=== PATIENT | female | born 1980 | race Caucasian/White ===

== ENCOUNTER 2019-11-09 11:39 | Emergency (ER) | payer OTHER ==
[~2019-11-09] VITALS: Ht 162 cm; Wt 83.2 kg
[2019-11-09 12:01] LABS: CLARITY,URINE CLEAR; COLOR,URINE YELLOW; GLUCOSE, URINE (UA) NEGATIVE (NEGATIVE); PH,URINE 6.5 (5-9); PROTEIN,URINE NEGATIVE (NEGATIVE)
[2019-11-09 12:02] LABS: BACTERIA,URINE FEW /HPF; BILIRUBIN,URINE NEGATIVE (NEGATIVE); KETONES,URINE NEGATIVE (NEGATIVE); LEUKOCYTE ESTERASE ,URINE TRACE (NEGATIVE); NITRITE,URINE NEGATIVE (NEGATIVE); RBC,URINE 0-2 /HPF; WBC,URINE 0-2 /HPF
--- NOTE | 2019-11-09 12:06 | ED General ---
General Stated Complaint: ABD/BACK PAIN Source of Information: Patient Exam Limitations: No Limitations History of Present Illness Date Seen by Provider: Nov 09, 2019 Time Seen by Provider: 11:55 Initial Comments Patient presents with onset of low back pain on both sides and radiating to her right lower abdomen and mid lower abdomen since last night. Pain is worse with movement, hard to find a comfortable position, feels better if leaning forward. Denies any pain with urination, any blood in her urine. Denies any fever or chills. Denies nausea vomiting, constipation or diarrhea. Appetite has been normal. Denies any recent back injury or history of back problems. 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 Allergies and Home Medications Allergies Coded Allergies: Penicillins (Verified Allergy, Unknown, 11/09/19) Home Medications Cyclobenzaprine HCl 10 Mg Tablet, 10 MG PO HS Prescribed by: TESHA SHETH on 11/09/19 1218 Hydrocodone/Acetaminophen 1 Each Tablet, 1-2 TAB PO Q6H Prescribed by: TESHA SHETH on 11/09/19 1218 Ibuprofen 800 Mg Tablet, 800 MG PO Q8H PRN for PAIN-MILD Prescribed by: TESHA SHETH on 11/09/19 1218 Patient Home Medication List Home Medication List Reviewed: Yes Review of Systems Review of Systems Constitutional: see HPI Respiratory: No cough, No dyspnea on exertion, No short of breath Cardiovascular: No chest pain, No palpitations, No syncope Gastrointestinal: abdominal pain; No constipation, No diarrhea, No dysphagia, No heartburn, No loss of appetite, No nausea, No vomiting Genitourinary: see HPI; No dysuria, No frequency, No hematuria Musculoskeletal: back pain; No joint pain; muscle pain Skin: see HPI; No change in color, No lesions, No rash Psychiatric/Neurological: Denies Paresthesia, Denies Weakness Past Jueamht-Nfyaik-Bancoj Hx Past Med/Social Hx: Reviewed Nursing Past Med/Soc Hx Patient Social History Recent Foreign Travel: No Physical Exam Vital Signs Vital Signs - First Documented 11/09/19 11:45 Temp 36.7 Pulse 101 Resp 16 B/P (MAP) 137/96 (110) Pulse Ox 98 Capillary Refill : Height, Weight, BMI Height: '" Weight: lbs. oz. kg; BMI Method: General Appearance: No Apparent Distress, WD/WN Respiratory: Chest Non Tender, Lungs Clear, Normal Breath Sounds Cardiovascular: Regular Rate, Rhythm, No Edema, No JVD, Normal Peripheral Pulses Gastrointestinal: Normal Bowel Sounds, Soft; No Distended, No Guarding; Tenderness (minimal suprapubic) Back: No Vertebral Tenderness, CVA Tenderness (L), CVA Tenderness (R), Decreased Range of Motion, Muscle Spasm, Other (moderate tenderness paraspinal ms lower thoracic and lumbar) Neurologic/Psychiatric: Alert, Oriented x3, No Motor/Sensory Deficits, Normal Mood/Affect Progress/Results/Core Measures Suspected Sepsis SIRS Temperature: Pulse: Respiratory Rate: Blood Pressure / Mean: Results/Orders Lab Results Laboratory Tests Test 11/09/19 11:35 Range/Units Urine Color YELLOW Urine Clarity CLEAR Urine pH 6.5 5-9 Urine Specific [place] 1.025 H 1.016-1.022 Urine Protein NEGATIVE NEGATIVE Urine Glucose (UA) NEGATIVE NEGATIVE Urine Ketones NEGATIVE NEGATIVE Urine Nitrite NEGATIVE NEGATIVE Urine Bilirubin NEGATIVE NEGATIVE Urine Urobilinogen 0.2 < = 1.0 MG/DL Urine Leukocyte Esterase TRACE NEGATIVE Urine RBC (Auto) TRACE H NEGATIVE Urine RBC 0-2 /HPF Urine WBC 0-2 /HPF Urine Squamous Epithelial Cells 10-25 H /HPF Urine Crystals NONE /LPF Urine Bacteria FEW H /HPF Urine Casts NONE /LPF Urine Mucus TRACE /LPF Urine Culture Indicated NO My Orders Orders - TESHA SHETH DO Urinalysis (11/09/19 11:49) Ketorolac Injection (Toradol Injection) (11/09/19 12:30) Vital Signs/I&O 11/09/19 11:45 Temp 36.7 Pulse 101 Resp 16 B/P (MAP) 137/96 (110) Pulse Ox 98 Capillary Refill : Departure Impression Primary Impression: Acute lumbar myofascial strain Qualified Codes: S39.012A - Strain of muscle, fascia and tendon of lower back, initial encounter Disposition: 01 HOME, SELF-CARE Condition: Stable Departure-Patient Inst. Referrals: [facility] (PCP) Primary Care Physician KERRY ROBLES (Family) Primary Care Physician Patient Instructions: Back Exercises Scripts Ibuprofen (Ibuprofen) 800 Mg Tablet 800 MG PO Q8H PRN for PAIN-MILD, #30 TAB Prov: TESHA SHETH DO 11/09/19 Hydrocodone/Acetaminophen (Hydrocodone-Acetamin 5-325 mg) 1 Each Tablet 1-2 TAB PO Q6H for PAIN-MODERATE, #12 TAB Prov: TESHA SHETH DO 11/09/19 Cyclobenzaprine HCl (Cyclobenzaprine HCl) 10 Mg Tablet 10 MG PO HS for Spasms, #14 TAB Prov: TESHA SHETH DO 11/09/19 TESHA SHETH DO Nov 09, 2019 12:06 POS
[2019-11-09] MEDS ORDERED: HYDR-3812 PO (12:18)
[2019-11-09] MEDS ORDERED: IBUP-1780 PO (12:18)
[2019-11-09] MEDS ORDERED: CYCL10TA9 PO (12:18)
[2019-11-09 12:30] VITALS: BP 137/96
[2019-11-09] MEDS ORDERED: KETOROLAC 60 MG/2 ML VIAL IM ONE (12:30)
== END 2019-11-09 12:31 | disposition home or self-care (01) ==
LOC: ER FS 11:42
DX: S39.012A Strain of muscle, fascia and tendon of lower back, initial encounter (principal); Z88.0 Allergy status to penicillin; X58.XXXA Exposure to other specified factors, initial encounter
CPT/HCPCS: 81000; 99284

== ENCOUNTER 2021-08-03 03:32 | Emergency (ER) | payer OTHER ==
[~2021-08-03 03:32] MED LIST: ACHD5005 PO; CYCL10TA9 PO; IBUP-1780 PO
[2021-08-03] MEDS ORDERED: oxyCODONE/APAP 5/325MG (PERCOCET 5) TABLET PO ONE (04:00)
[2021-08-03] MEDS ORDERED: ACHD5005 PO (04:01)
--- NOTE | 2021-08-03 04:01 | ED General ---
General Chief Complaint: Upper Extremity Stated Complaint: RIGHT INJURY Nursing Triage Note: Pt complaining of right arm pain. Pt states she didn't injure her arm but woke up yesterday morning and couldn't lift it up at all. Source of Information: Patient Exam Limitations: No Limitations History of Present Illness Date Seen by Provider: Aug 03, 2021 Time Seen by Provider: 03:55 Initial Comments Patient is a 41-year-old right-handed female presents with right nontraumatic shoulder pain. Pain began yesterday upon waking. Patient reports sharp pain in the right anterior lateral shoulder worse with palpation arm range of motion. It is slightly better when held in external rotation and elbow flexion. Patient denies injury or trauma to this region. She has taken Aleve and Tylenol with limited relief. She denies neck pain. She denies extremity weakness. No chest pain shortness of breath. No other acute symptoms or complaints. 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 Timing/Duration: 1-2 Days Severity: Severe Modifying Factors: improves with Other Associated Systoms: Other Allergies and Home Medications Allergies Coded Allergies: Penicillins (Verified Allergy, Unknown, 11/09/19) Patient Home Medication List Home Medication List Reviewed: Yes Cyclobenzaprine HCl (Cyclobenzaprine HCl) 10 Mg Tablet, 10 MG PO HS Prescribed by: TESHA SHETH on 11/09/19 1218 Hydrocodone Bit/Acetaminophen (Lortab 5 Mg Tablet) 1 Each Tablet, 1-2 TAB PO Q6H Prescribed by: TESHA SHETH on 11/09/19 1218 Ibuprofen (Ibuprofen) 800 Mg Tablet, 800 MG PO Q8H PRN for PAIN-MILD Prescribed by: ETSHA SHETH on 11/09/19 1218 Review of Systems Review of Systems Constitutional: see HPI Cardiovascular: no symptoms reported Musculoskeletal: see HPI Psychiatric/Neurological: See HPI Past Pxybbdw-Yuuckk-Lsnpci Hx Patient Social History Tobacco Use?: Yes Tobacco type used: Cigarettes Smoking Status: Current Everyday Smoker Use of E-Cig and/or Vaping dev: No Substance use?: No Alcohol Use?: No Pt feels they are or have been: No Seasonal Allergies Seasonal Allergies: No Past Medical History Surgeries: Yes (eye) Orthopedic, Tubal Ligation Respiratory: No Cardiac: Yes Heart Murmur, High Cholesterol, Hypertension Neurological: No Genitourinary: No Gastrointestinal: No Musculoskeletal: No Endocrine: No HEENT: No Cancer: No Psychosocial: No Integumentary: No Physical Exam Vital Signs Vital Signs - First Documented 08/03/21 03:37 Temp 36.4 Pulse 93 Resp 18 B/P (MAP) 135/87 (103) Pulse Ox 97 O2 Delivery Room Air Capillary Refill : Less Than 3 Seconds Height, Weight, BMI Height: '" Weight: lbs. oz. kg; 31.00 BMI Method: General Appearance: Moderate Distress Eyes: Bilateral Eye Normal Inspection, Bilateral Eye PERRL HEENT: PERRL/EOMI Extremity: Other (Right shoulder, no deformity, swelling or bruising. Tenderness to palpation over anterior lateral shoulder, but pain with range of motion. Limited range of motion testing secondary to pain.) Neurologic/Psychiatric: Alert, No Motor/Sensory Deficits Skin: Other (No warmth swelling or redness) Progress/Results/Core Measures Suspected Sepsis SIRS Temperature: Pulse: 93 Respiratory Rate: 18 Blood Pressure 135 /87 Mean: 103 Results/Orders My Orders Orders - ANA BARAJAS DO Oxycodone/Apap 5/325mg Tablet (Percocet (08/03/21 04:00) Vital Signs/I&O 08/03/21 03:37 Temp 36.4 Pulse 93 Resp 18 B/P (MAP) 135/87 (103) Pulse Ox 97 O2 Delivery Room Air Capillary Refill : Less Than 3 Seconds Blood Pressure Mean: 103 Departure Communication (Admissions) Right shoulder pain reproducible with palpation and movement. Suspect rotator cuff injury. Pain addressed. Recommendations are supportive care with PCP follow-up Impression Primary Impression: Right shoulder pain Additional Impression: Rotator cuff (capsule) sprain Disposition: HOME, SELF-CARE Condition: Stable Departure-Patient Inst. Decision time for Depature: 03:58 Referrals: [facility] (PCP) Primary Care Physician KERRY ROBLES (Family) Primary Care Physician Patient Instructions: Rotator Cuff Injury (DC) Add. Discharge Instructions: Please wear right shoulder sling. Apply ice to affected area. Continue Aleve and take hydrocodone as needed for additional relief. Follow-up with your PCP on Friday or Friday for reevaluation. All discharge instructions reviewed with patient and/or family. Voiced understanding. Scripts Hydrocodone/Acetaminophen (Hydrocodone-Acetamin 5-325 mg) 1 Each Tablet 1 TAB PO Q4H PRN for PAIN-MODERATE (5-7), #10 TAB Prov: ANA BARAJAS DO 08/03/21 Work/School Note: Family Work Note Patient Received Medical Care In the Emergency Department On: Aug 03, 2021 Patient Will Be Able to Return to Work/School On: Aug 06, 2021 Patient Restrictions: Limited use of right arm as tolerated or until cleared by PCP ANA BARAJAS DO Aug 03, 2021 04:01
[2021-08-03 04:08] VITALS: BP 135/87
== END 2021-08-03 04:12 | disposition home or self-care (01) ==
LOC: EDUNIT# 03:32 → ER FS 03:34
DX: S43.421A Sprain of right rotator cuff capsule, initial encounter (principal); I10 Essential (primary) hypertension; F17.210 Nicotine dependence, cigarettes, uncomplicated; X58.XXXA Exposure to other specified factors, initial encounter
CPT/HCPCS: 99283; A4565

== ENCOUNTER → 2021-08-09 | Outpatient (CLI) | payer OTHER ==
--- NOTE | 2021-08-09 14:11 | Diagnostic Imaging Report ---
INDICATION: Neck pain radiating to right arm. 6 views of the cervical spine show normal height and alignment of the vertebral bodies. Disc spaces are well maintained. There is no spondylosis. No bony canal stenosis is seen. There is no fracture. IMPRESSION: No abnormality is seen. Dictated by: Dictated on workstation # [id number]
== END ==
LOC: RAD FS 11:00
PROVIDERS: ATTEND Nurse Practitioner
DX: M54.12 Radiculopathy, cervical region (principal)
CPT/HCPCS: 72050

== ENCOUNTER 2021-11-18 14:21 | Emergency (ER) | payer OTHER ==
[~2021-11-18] VITALS: Ht 162.6 cm; Wt 78.9 kg
[~2021-11-18 14:21] MED LIST changes: +CYCL10TA25 PO; -CYCL10TA9 PO
[2021-11-18 14:32] VITALS: BP 142/74
[2021-11-18] MEDS ORDERED: PROCHLORPERAZINE 10 MG/2ML INJ (COMPAZINE) IV ONE (15:00)
[2021-11-18] MEDS ORDERED: KETOROLAC 30 MG/ML VIAL IVP ONE (15:00)
[2021-11-18] MEDS ORDERED: diphenhydrAMINE 50 MG/ML INJ (BENADRYL) IVP ONE (15:00)
[2021-11-18] MEDS ORDERED: NS IV 1000 ML 1,000 ML IV SCH (15:00)
[2021-11-18] MEDS ORDERED: METOCLOPRAMIDE INJ 10 MG/2 ML (REGLAN) IVP ONE (15:00)
--- NOTE | 2021-11-18 15:46 | ED Headache ---
General Chief Complaint: Head/Cervical Problems Stated Complaint: MIGRIANE,LIGHT SENISITIVITY,BURNING FEELING/MOUTH Nursing Triage Note: Patient reports she has a history of migraine headaches, statess he developed a headache yesterday morning and had to leave work today because of her migraine. She reports she took amitryptaline and tylenol without relief. She also reports she has had a cough for a month and would like to be evaluated for that as well. Source: patient History of Present Illness Date Seen by Provider: Nov 18, 2021 Time Seen by Provider: 14:30 Initial Comments Patient is a 41-year-old female with history of migraine headaches who presents with typical migraine-like headache starting yesterday morning. Pain is dull throbbing and frontal in location. She reports nausea without vomiting. Light sensitivity and fatigue. Patient is taken amitriptyline and Tylenol at home without relief. She also reports chronic medical problems related to cough smoking and come tenderness. No other acute symptoms or complaint. Severity/Quality: moderate Prior Headaches/Recent Trauma: other Modifying Factors: improves with other Associated Symptoms: other Allergies and Home Medications Allergies Coded Allergies: Penicillins (Verified Allergy, Unknown, 11/09/19) Patient Home Medication List Home Medication List Reviewed: Yes Cyclobenzaprine HCl (Cyclobenzaprine HCl) 10 Mg Tablet, 10 MG PO HS Prescribed by: TESHA SHETH on 11/09/19 1218 Hydrocodone Bit/Acetaminophen (Lortab 5 Mg Tablet) 1 Each Tablet, 1-2 TAB PO Q6H Prescribed by: TESHA SHETH on 11/09/19 1218 Hydrocodone/Acetaminophen (Hydrocodone-Acetamin 5-325 mg) 1 Each Tablet, 1 TAB PO Q4H PRN for PAIN-MODERATE (5-7) Prescribed by: ANA BARAJAS on 08/03/21 0402 Ibuprofen (Ibuprofen) 800 Mg Tablet, 800 MG PO Q8H PRN for PAIN-MILD Prescribed by: TESHA SHETH on 11/09/19 1218 Review of Systems Review of Systems Constitutional: see HPI Eyes: See HPI Ears, Nose, Mouth, Throat: see HPI Respiratory: see HPI Cardiovascular: see HPI Gastrointestinal: see HPI Genitourinary: see HPI Musculoskeletal: see HPI Skin: see HPI Psychiatric/Neurological: See HPI Past Hknwaej-Dlquzr-Ugsjpl Hx Patient Social History Tobacco Use?: Yes Tobacco type used: Cigarettes Smoking Status: Current Everyday Smoker Substance use?: No Alcohol Use?: Yes Alcohol Frequency: Rarely Pt feels they are or have been: No Immunizations Up To Date First/Initial COVID19 Vaccinat: Dec 2020 Second COVID19 Vaccination Clem: January 2021 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[employer] Seasonal Allergies Seasonal Allergies: No Past Medical History Surgery/Hospitalization HX: migraines Surgeries: Yes (eye) Orthopedic, Tubal Ligation Respiratory: No Cardiac: Yes Heart Murmur, High Cholesterol, Hypertension Neurological: No Genitourinary: No Gastrointestinal: No Musculoskeletal: No Endocrine: No HEENT: No Cancer: No Psychosocial: No Integumentary: No Physical Exam Vital Signs Vital Signs - First Documented 11/18/21 14:32 Temp 36.7 Pulse 93 Resp 16 B/P (MAP) 142/74 (96) Pulse Ox 100 O2 Delivery Room Air Capillary Refill : Less Than 3 Seconds Height, Weight, BMI Height: '" Weight: lbs. oz. kg; 29.00 BMI Method: General Appearance: WD/WN, no apparent distress HEENT: PERRL/EOMI, normal ENT inspection, other (Edentulous, mild gingival irritation) Neck: non-tender, full range of motion, supple Cardiovascular: regular rate, rhythm Respiratory: lungs clear, decreased breath sounds Gastrointestinal: non tender, soft Psychiatric: oriented x 3 Progress/Results/Core Measures Results/Orders My Orders Orders - ANA BARAJAS Iv 1000 Ml (Sodium Chloride 0.9%) (11/18/21 15:00) Prochlorperazine Injection (Compazine In (11/18/21 15:00) Diphenhydramine Injection (Benadryl Inje (11/18/21 15:00) Ketorolac Injection (Toradol Injection) (11/18/21 15:00) Metoclopramide Injection (Reglan Injecti (11/18/21 15:00) Medications Given in ED Current Medications Medications Dose Ordered Sig/Nuha Route Start Time Stop Time Status Last Admin Dose Admin Diphenhydramine HCl 50 mg ONCE ONCE IVP 11/18/21 15:00 11/18/21 15:01 DC 11/18/21 15:05 50 MG Ketorolac Tromethamine 30 mg ONCE ONCE IVP 11/18/21 15:00 11/18/21 15:01 DC 11/18/21 15:05 30 MG Metoclopramide HCl 10 mg ONCE ONCE IVP 11/18/21 15:00 11/18/21 15:01 DC 11/18/21 15:05 10 MG Prochlorperazine Edisylate 10 mg ONCE ONCE IV 11/18/21 15:00 11/18/21 15:01 DC 11/18/21 15:05 10 MG Vital Signs/I&O 11/18/21 14:32 Temp 36.7 Pulse 93 Resp 16 B/P (MAP) 142/74 (96) Pulse Ox 100 O2 Delivery Room Air Blood Pressure Mean: 96 Departure Communication (Admissions) Migraine headache resolved with treatment. Recommend continued supportive care watchful waiting and PCP follow-up for reevaluation and management of chronic unrelated medical problems. Impression Primary Impression: Migraine headache Disposition: HOME, SELF-CARE Condition: Stable Departure-Patient Inst. Decision time for Depature: 15:50 Referrals: NO,LOCAL PHYSICIAN (PCP/Family) Primary Care Physician Patient Instructions: Migraines in Adults Add. Discharge Instructions: Please go home and rest. Take Excedrin Migraine and Compazine as needed for migraine headache. Follow-up with your PCP in 3 to 5 days for reevaluation as needed. Return to the ED if new or worsening symptoms. All discharge instructions reviewed with patient and/or family. Voiced understanding. Scripts Prochlorperazine Maleate (Compazine) 10 Mg Tablet 10 MG PO Q8H, #10 TAB Prov: ANA BARAJAS DO 11/18/21 Work/School Note: Work Release Form Date Seen in the Emergency Department: Nov 18, 2021 Return to Work: Nov 20, 2021 ANA BARAJAS DO Nov 18, 2021 15:46
[2021-11-18] MEDS ORDERED: PROC-1 PO (15:51)
== END 2021-11-18 15:55 | disposition home or self-care (01) ==
LOC: EDUNIT# 14:21 → ER FS 14:23
DX: G43.909 Migraine, unspecified, not intractable, without status migrainosus (principal); I10 Essential (primary) hypertension; F17.210 Nicotine dependence, cigarettes, uncomplicated; Z79.899 Other long term (current) drug therapy

== ENCOUNTER 2022-06-24 19:43 | Emergency (ER) | payer OTHER ==
[~2022-06-24 19:43] MED LIST changes: +PROC-1 PO
--- NOTE | 2022-06-24 20:29 | ED Integumentary General ---
General Chief Complaint: Skin/Wound Problems Stated Complaint: SPIDER BITE,ABD PAIN Nursing Triage Note: Pt states she was seen at urgent care on Friday of last week for a spider bite on her abdomen. Pt was prescribed Bactrim cream. Pt went to urgent care again yesterday because the area was draining and she had it cultured. Pt was also given oral Bactrim yesterday. Pt states she picked up her prescription today and has taken one dose of the antibiotic. Pt presents tonight complaining of pain Source: patient Exam Limitations: no limitations History of Present Illness Date Seen by Provider: Jun 24, 2022 Time Seen by Provider: 20:07 Initial Comments 43-year-old female patient states she was seen at urgent care 5 days ago with diagnosis of a spider bite to abdominal wall and then discharged home with prescription of Bactroban. Patient had drainage of pus from the infected area 3 days ago and was seen at urgent care yesterday and was prescribed with Bactrim after they cultured the wound. Patient took 1 dose of Bactrim today but complaining of severe pain and not able to go to work. Allergies and Home Medications Allergies Coded Allergies: Penicillins (Verified Allergy, Unknown, 11/09/19) Patient Home Medication List Home Medication List Reviewed: Yes Cyclobenzaprine HCl (Cyclobenzaprine HCl) 10 Mg Tablet, 10 MG PO HS Prescribed by: TESHA SHETH on 11/09/19 1218 Hydrocodone Bit/Acetaminophen (Lortab 5 Mg Tablet) 1 Each Tablet, 1-2 TAB PO Q6H Prescribed by: TESHA SHETH on 11/09/19 1218 Hydrocodone/Acetaminophen (Hydrocodone-Acetamin 5-325 mg) 1 Each Tablet, 1 TAB PO Q4H PRN for PAIN-MODERATE (5-7) Prescribed by: ANA BARAJAS on 08/03/21 0402 Ibuprofen (Ibuprofen) 800 Mg Tablet, 800 MG PO Q8H PRN for PAIN-MILD Prescribed by: TESHA SHETH on 11/09/19 1218 Naproxen (Naprosyn) 500 Mg Tablet, 500 MG PO BID PRN for pain Prescribed by: Emerita cross on 06/24/22 2041 Prochlorperazine Maleate (Compazine) 10 Mg Tablet, 10 MG PO Q8H Prescribed by: ANA BARAJAS on 11/18/21 1551 Review of Systems Review of Systems Constitutional: see HPI EENTM: no symptoms reported Respiratory: no symptoms reported Cardiovascular: no symptoms reported Gastrointestinal: see HPI Genitourinary: no symptoms reported Skin: see HPI Psychiatric/Neurological: No Symptoms Reported All Other Systems Reviewed Negative Unless Noted: Yes Past Nbdkqvo-Xgdamd-Reywjb Hx Patient Social History Tobacco Use?: Yes Tobacco type used: Cigarettes Smoking Status: Current Everyday Smoker Substance use?: No Alcohol Use?: No Pt feels they are or have been: No Immunizations Up To Date First/Initial COVID19 Vaccinat: Dec 2020 Second COVID19 Vaccination Clem: January 2021 Seasonal Allergies Seasonal Allergies: No Past Medical History Surgery/Hospitalization HX: migraines Surgeries: Yes (eye) Orthopedic, Tubal Ligation Respiratory: No Cardiac: Yes Heart Murmur, High Cholesterol, Hypertension Neurological: No Genitourinary: No Gastrointestinal: No Musculoskeletal: No Endocrine: No HEENT: No Cancer: No Psychosocial: No Integumentary: No Physical Exam Vital Signs Vital Signs - First Documented 06/24/22 19:46 Temp 36.8 Pulse 110 Resp 20 B/P (MAP) 179/101 (127) Pulse Ox 97 O2 Delivery Room Air Capillary Refill : Less Than 3 Seconds General Appearance: mild distress, other HEENT: PERRL/EOMI Neck: non-tender Cardiovascular: regular rate, rhythm, no edema, no gallop Respiratory: chest non-tender, lungs clear, normal breath sounds, no respiratory distress Gastrointestinal: soft, no organomegaly, other (1 cm area of erythema with central opening of small amount of white discharge in right lower quadrant) Back: normal inspection Neurologic/Psychiatric: alert, oriented x 3 Skin: other (1 cm area of erythema in right lower quadrant of abdominal wall with small amount of pus drainage) Progress/Results/Core Measures Results/Orders My Orders Orders - EMERITA CROSS MD Hydrocodone/Apap 5/325 Tablet (Lortab 5 (06/24/22 20:45) Medications Given in ED Current Medications Medications Dose Ordered Sig/Nuha Route Start Time Stop Time Status Last Admin Dose Admin Acetaminophen/ Hydrocodone Bitart 1 ea ONCE ONCE PO 06/24/22 20:45 06/24/22 20:46 DC 06/24/22 20:40 1 EA Vital Signs/I&O 06/24/22 06/24/22 19:46 20:43 Temp 36.8 36.8 Pulse 110 110 Resp 20 20 B/P (MAP) 179/101 (127) 179/101 Pulse Ox 97 97 O2 Delivery Room Air Room Air Blood Pressure Mean: 127 Progress Progress Note : Progress Note Evaluation of patient in ER showed 42-year-old female patient with 2 times urgent care visit for small abdominal wall abscess who mainly needed for acute cues for stay at home tonight. Patient had a small area of erythema of abdominal wall with small amount of pus drainage. Wound cleaned and dressing applied. Patient advised to continue Bactrim and prescription for Naprosyn was given. Patient treated with hydrocodone in ER and work excuse for 2 days was given. Departure Impression Primary Impression: Abdominal wall abscess Disposition: HOME, SELF-CARE Condition: Stable Departure-Patient Inst. Decision time for Depature: 20:39 Referrals: EVELIO PACHECO MD (PCP/Family) Primary Care Physician Patient Instructions: Wound Care (DC), Methicillin-Resistant Staphylococcus aureus (MRSA) Add. Discharge Instructions: Continue Bactrim Keep wound clean and dry Follow-up with your primary care physician or return to ER as needed All discharge instructions reviewed with patient and/or family. Voiced understanding. Scripts Naproxen (Naprosyn) 500 Mg Tablet 500 MG PO BID PRN for pain, #14 TAB Prov: EMERITA CROSS MD 06/24/22 Work/School Note: Work Release Form Return to Work: Jun 26, 2022 EMERITA CROSS MD Jun 24, 2022 20:29
[2022-06-24] MEDS ORDERED: NAPR-1071 PO (20:41)
[2022-06-24 20:43] VITALS: BP 179/101
[2022-06-24] MEDS ORDERED: HYDROcodone/APAP 5 MG/325 MG (LORTAB) TAB PO ONE (20:45)
== END 2022-06-24 20:46 | disposition home or self-care (01) ==
LOC: EDUNIT# 19:43 → ER FS 19:45
DX: L02.211 Cutaneous abscess of abdominal wall (principal); F17.210 Nicotine dependence, cigarettes, uncomplicated; Z88.0 Allergy status to penicillin
CPT/HCPCS: 99283

== ENCOUNTER 2023-06-26 22:01 | Emergency (ER) | payer SELFPAY ==
[~2023-06-26] VITALS: Ht 162.5 cm; Wt 78.0 kg
[~2023-06-26 22:01] MED LIST changes: +NAPR-1071 PO
[2023-06-26] MEDS ORDERED: RIZA10TA94 (22:28)
[2023-06-26] MEDS ORDERED: BENZONATATE 100 MG CAPSULE PO ONE (22:30)
[2023-06-26] MEDS ORDERED: AZITHROMYCIN 250 MG TABLET PO ONE (22:30)
[2023-06-26] MEDS ORDERED: BENZ100C18 PO (23:19)
[2023-06-26] MEDS ORDERED: AZIT250T PO (23:19)
--- NOTE | 2023-06-26 23:19 | ED Cough/URI ---
General Chief Complaint: Cough/Cold/Flu Symptoms Stated Complaint: CONGESTION,COUGH Nursing Triage Note: Patient presents to ED per POV, ambulatory to ED 6 reporting coughing for 2 weeks or more. Pt reports has been coughing since returning from a trip in the [facility] and began many OTC products that do not work. Pt has had DayQuil, NIghtQuil, cough drops. Pt coughs so hard she nearly vomits but produces phlegm. Pt denies seeing her PCP as reporting they will tell her to use OTC products. Pt states she does not feel like she can attend work tomorrow. Source: patient, RN notes reviewed Exam Limitations: no limitations History of Present Illness Date Seen by Provider: Jun 26, 2023 Time Seen by Provider: 22:15 Initial Comments 43-year-old female patient presented POV with her with complaining of cough and congestion shortness of breath. Patient stated she had has cough 1 week before she was traveling to [place] on June 11 associated with nasal congestion and sore throat and chronic headache, hurting on rib cage, shortness of breath. Patient complaining of posttussive vomiting episode. Patient stated she took bapt-eow-bcbnmtl cough medication without improvement of her cough and was not able to follow-up with her primary care physician. Patient denies fever, urinary symptoms, sick contact, chest pain, . Allergies and Home Medications Allergies Coded Allergies: Penicillins (Verified Allergy, Unknown, 11/09/19) Patient Home Medication List Home Medication List Reviewed: Yes Azithromycin (Zithromax) 250 Mg Tablet, 250 MG PO DAILY Prescribed by: Emerita cross on 06/26/232318 Benzonatate (Tessalon Perles) 100 Mg Capsule, 100 MG PO QID Prescribed by: Emerita cross on 06/26/232318 Rizatriptan Benzoate (Rizatriptan) 10 Mg Tab.karyna, (Reported) Entered as Reported by: DEEPAK BOBO on 06/26/232227 Last Action: New Order Discontinued Medications Cyclobenzaprine HCl (Cyclobenzaprine HCl) 10 Mg Tablet, 10 MG PO HS Discontinued Reason: Referral/FU Appt-Addtl Prescribed by: TESHA SHETH on 11/09/19 1218 Last Action: Discontinued Hydrocodone Bit/Acetaminophen (Lortab 5 Mg Tablet) 1 Each Tablet, 1-2 TAB PO Q6H Discontinued Reason: Referral/FU Appt-Addtl Prescribed by: TESHA SHETH on 11/09/19 1218 Last Action: Discontinued Hydrocodone/Acetaminophen (Hydrocodone-Acetamin 5-325 mg) 1 Each Tablet, 1 TAB PO Q4H PRN for PAIN-MODERATE (5-7) Discontinued Reason: Referral/FU Appt-Addtl Prescribed by: ANA BARAJAS on 08/03/21 0402 Last Action: Discontinued Ibuprofen (Ibuprofen) 800 Mg Tablet, 800 MG PO Q8H PRN for PAIN-MILD Discontinued Reason: Referral/FU Appt-Addtl Prescribed by: TESHA SHETH on 11/09/19 1218 Last Action: Discontinued Naproxen (Naprosyn) 500 Mg Tablet, 500 MG PO BID PRN for pain Discontinued Reason: Referral/FU Appt-Addtl Prescribed by: Emerita cross on 06/24/22 204 Last Action: Discontinued Prochlorperazine Maleate (Compazine) 10 Mg Tablet, 10 MG PO Q8H Discontinued Reason: Referral/FU Appt-Addtl Prescribed by: ANA BARAJAS on 11/18/21 1551 Last Action: Discontinued Review of Systems Review of Systems Constitutional: see HPI EENTM: see HPI Respiratory: see HPI Cardiovascular: see HPI Gastrointestinal: see HPI Genitourinary: no symptoms reported Musculoskeletal: see HPI Skin: no symptoms reported Psychiatric/Neurological: No Symptoms Reported Hematologic/Lymphatic: No Symptoms Reported Immunological/Allergic: no symptoms reported All Other Systems Reviewed Negative Unless Noted: Yes Past Ceuinsw-Tlcyfi-Nrzgpe Hx Patient Social History Tobacco Use?: Yes Tobacco type used: Cigarettes Smoking Status: Current Everyday Smoker Smokeless Tobacco Frequency: Unknown if Ever Used Use of E-Cig and/or Vaping dev: No Use of E-Cig and/or Vaping Ming: Unknown if Ever Used Substance use?: No Alcohol Use?: No Immunizations Up To Date First/Initial COVID19 Vaccinat: Dec 2020 Second COVID19 Vaccination Clem: January 2021 Third COVID19 Vaccination Date: Jul 2022 COVID19 Vaccine Head Of Stock: Moderna Seasonal Allergies Seasonal Allergies: No Past Medical History Surgery/Hospitalization HX: migraines Surgeries: Yes (eye) Orthopedic, Tubal Ligation Respiratory: No Cardiac: Yes Heart Murmur, High Cholesterol, Hypertension Neurological: No Genitourinary: No Gastrointestinal: No Musculoskeletal: No Endocrine: No HEENT: No Cancer: No Psychosocial: No Integumentary: No Physical Exam Vital Signs - First Documented 06/26/23 22:06 Temp 37.3 Pulse 112 Resp 20 B/P (MAP) 124/73 (90) Pulse Ox 97 O2 Delivery Room Air Capillary Refill : Less Than 3 Seconds Height: '" Weight: lbs. oz. kg; 29.00 BMI Method: General Appearance: WD/WN, mild distress Eyes: Bilateral Eye Normal Inspection HEENT: PERRL/EOMI, normal ENT inspection, TMs normal, pharynx normal Neck: non-tender, full range of motion Respiratory: chest non-tender, lungs clear, normal breath sounds, no respiratory distress, no accessory muscle use Cardiovascular: no edema, no gallop, tachycardia Gastrointestinal: normal bowel sounds, non tender Extremities: normal range of motion Neurologic/Psychiatric: alert, oriented x 3 Skin: normal color, warm/dry Progress/Results/Core Measures Suspected Sepsis SIRS Temperature: Pulse: 112 Respiratory Rate: 20 Blood Pressure 124 /73 Mean: 90 Results/Orders My Orders Orders - EMERITA CROSS MD Chest Pa/Lat (2 View) (06/26/23 22:27) Benzonatate Capsule (Benzonatate Capsule (06/26/23 22:30) Azithromycin Tablet (Azithromycin Tabl (06/26/23 22:30) Medications Given in ED Current Medications Medications Dose Ordered Sig/Nuha Route Start Time Stop Time Status Last Admin Dose Admin Azithromycin 500 mg ONCE ONCE PO 06/26/23 22:30 06/26/23 22:31 DC 06/26/23 22:46 500 MG Benzonatate 200 mg ONCE ONCE PO 06/26/23 22:30 06/26/23 22:31 DC 06/26/23 22:45 200 MG Vital Signs/I&O 06/26/23 22:06 Temp 37.3 Pulse 112 Resp 20 B/P (MAP) 124/73 (90) Pulse Ox 97 O2 Delivery Room Air Capillary Refill : Less Than 3 Seconds Blood Pressure Mean: 90 Progress Note : Progress Note Patient with complaining of cough and congestion and sore throat and shortness of breath for more than 3 weeks that did not get better with evbw-uuq-[id number] cough medication. Patient asking for work excuse for tomorrow. Patient had mild tachycardia at arrival to ER that improved while she was resting in ER. Chest x-ray interpreted by me did not show acute finding. Patient treated with Tessalon and Zithromax 500 mg in ER and prescription for Zithromax for 4 more days and Tessalon was given and advised to quit smoking. Diagnostic Imaging Diagonstic Imaging: Xray Plain Films/CT/US/NM/MRI: chest Comments 2 view chest x-ray was ordered and interpreted by me and did not show acute finding. Departure Impression Primary Impression: Acute bronchitis Qualified Codes: J20.9 - Acute bronchitis, unspecified Disposition: HOME, SELF-CARE Condition: Improved Departure-Patient Inst. Decision time for Depature: 23:16 Referrals: EVELIO PACHECO MD (PCP/Family) Primary Care Physician Patient Instructions: Cough, Adult (DC), Bronchitis, Adult ED Add. Discharge Instructions: Drink plenty of liquids Quit smoking Follow-up with your primary care physician in 3 to 5 days Return to ER as needed All discharge instructions reviewed with patient and/or family. Voiced understanding. Scripts Azithromycin (Zithromax) 250 Mg Tablet 250 MG PO DAILY for Bronchitis for 4 Days, #4 TAB Prov: EMERITA CROSS MD 06/26/23 Benzonatate (TESSALON PERLES) 100 Mg Capsule 100 MG PO QID for cough, #20 CAP Prov: EMERITA CROSS MD 06/26/23 Work/School Note: Work Release Form Date Seen in the Emergency Department: Jun 26, 2023 Return to Work: Jun 28, 2023 EMERITA CROSS MD Jun 26, 2023 23:19
[2023-06-26 23:25] VITALS: BP 133/76
--- NOTE | 2023-06-27 08:31 | Diagnostic Imaging Report ---
INDICATION: Cough and congestion for more than 2-week. TECHNIQUE: Two view chest 10:39 PM CORRELATION STUDY: None FINDINGS: The heart size, mediastinal configuration and pulmonary vasculature are within normal limits. Lungs demonstrate no consolidating infiltrate. Mildly prominent interstitial markings are noted. No effusion. Visualized osseous structures are unremarkable. IMPRESSION: 1. Negative for acute abnormality of the chest. Dictated by: Dictated on workstation # [id number]
== END 2023-06-26 23:25 | disposition home or self-care (01) ==
LOC: EDUNIT# 22:01 → ER FS 22:02
DX: J20.9 Acute bronchitis, unspecified (principal); R00.0 Tachycardia, unspecified; F17.210 Nicotine dependence, cigarettes, uncomplicated; Z88.0 Allergy status to penicillin
CPT/HCPCS: 71046